=== PATIENT | female | born 1965 | race Caucasian/White ===

== ENCOUNTER 2023-08-26 08:48 | Day surgery (SDC) | payer BC ==
[~2023-08-26] VITALS: Ht 154.9 cm; Wt 68.0 kg
[~2023-08-26 08:48] MED LIST: CEFAZOLIN SOD 2 GM in D5W 50 ML IV ONE
[2023-08-26 10:29] VITALS: O2SAT 99
[2023-08-26] MEDS ORDERED: LIDOCAINE 2%, 20 ML MDV ONE (11:42)
[2023-08-26] MEDS ORDERED: DEXAMETHASONE SOD PHOSPHATE 4 MG/ML VIAL ONE (11:42)
[2023-08-26] MEDS ORDERED: NS IRRIG SOLN 1000 ML IR ONE (11:42)
[2023-08-26] MEDS ORDERED: SUGAMMADEX SODIUM 200 MG/2 ML VIAL IV ONE (11:42)
[2023-08-26] MEDS ORDERED: ROCURONIUM BROMIDE 10 MG/ML (ZEMURON) ONE (11:42)
[2023-08-26] MEDS ORDERED: MIDAZOLAM HCL/PF 2 MG/2 ML SYRINGE ONE (11:42)
[2023-08-26] MEDS ORDERED: BUPIVACAINE /PF 0.25% 30 ML VIAL INJ ONE (11:42)
[2023-08-26] MEDS ORDERED: KETOROLAC TROMETHAMINE 30 MG VIAL ONE (11:42)
[2023-08-26] MEDS ORDERED: PROPOFOL 200MG/ 20ML VIAL (DIPRIVAN) IV ONE (11:42)
[2023-08-26] MEDS ORDERED: NS 1000 ML IV.SOLN IV ONE (11:42)
[2023-08-26] MEDS ORDERED: fentaNYL CITRATE/PF 100 MCG/2 ML AMP ONE (11:42)
[2023-08-26] MEDS ORDERED: ISOFLURANE 15 MIN GAS INH ONE (11:42)
[2023-08-26] MEDS ORDERED: ONDANSETRON HCL 4 MG/2 ML VIAL ONE (11:42)
[2023-08-26] MEDS ORDERED: ACETAMINOPHEN I.V. 1000 MG 100 ML IV ONE (12:17)
[2023-08-26] MEDS ORDERED: HYDROmorphone 1 MG/ML INJ. CARTRIDGE IVP PRN ×2 (12:45)
[2023-08-26] MEDS ORDERED: LABETALOL 100 MG/ 20ML VIAL IVP PRN (12:45)
[2023-08-26] MEDS ORDERED: LR 1,000 ML IV SCH (12:45)
[2023-08-26] MEDS ORDERED: METOCLOPRAMIDE HCL 10 MG/2 ML VIAL IVP PRN (12:45)
[2023-08-26] MEDS ORDERED: hydrALAZINE HCL 20 MG/ML VIAL IVP PRN (12:45)
[2023-08-26] MEDS ORDERED: MEPERIDINE HCL/PF 25 MG/ML DISP.SYRIN IVP PRN (12:45)
[2023-08-26] MEDS ORDERED: HYDROcodone/ACETAMIN 5-325 MG TAB (NORCO/ VICODIN) PO PRN (13:30)
[2023-08-26] MEDS ORDERED: OXYCODONE/ACETAMINOPHEN 5-325 TABLET PO PRN ×2 (13:30)
[2023-08-26] MEDS ORDERED: ONDANSETRON HCL 4 MG/2 ML VIAL IVP PRN (13:30)
[2023-08-26 15:36] VITALS: BP_SYST 134; PULSE 81; RESP 19; TEMP 97.1
== END 2023-08-26 18:38 | disposition home or self-care (01) ==
LOC: SDS 08:48 → SMU 08:50 → SDS 18:38
PROVIDERS: ATTEND Specialist
DX: N83.201 Unspecified ovarian cyst, right side (principal); N83.8 Other noninflammatory disorders of ovary, fallopian tube and broad ligament; E78.5 Hyperlipidemia, unspecified; E03.9 Hypothyroidism, unspecified; Z78.0 Asymptomatic menopausal state; I10 Essential (primary) hypertension; K21.9 Gastro-esophageal reflux disease without esophagitis; G47.33 Obstructive sleep apnea (adult) (pediatric); Z99.89 Dependence on other enabling machines and devices; Z91.040 Latex allergy status; Z79.899 Other long term (current) drug therapy
CPT/HCPCS: 87081; 58661; 88108; 88305; J3490 ×2; J0690; J1100; J1885; J2001; J3465; J2405; J2704; J3010; J7060; J7030; C1727; J0131